=== PATIENT | female | born 1955 | race Caucasian/White ===

== ENCOUNTER → 2024-01-11 | Outpatient (CLI) | payer MEDICARE, OTHER, SELFPAY ==
[2024-01-11 11:08] LABS: EXAGEN MAILED SPECIMEN
[2024-01-11 12:19] LABS: Color, Urine Yellow (Yellow); Glucose, Dipstick Normal (Normal); Ketone-Dipstick Negative (Negative); Leukocyte Esterase-Dipstick 100 /ul (Negative); Nitrite-Dipstick Negative (Negative); Occult Blood-Urine Negative /ul (Negative); Protein-Dipstick Negative (Negative); Specific Gravity, Urine 1.015 (1.002-1.030); Urine Bilirubin Dipstick Negative (Negative); Urine Clarity Clear (Clear); Urine Urobilinogen Normal (Normal)
[2024-01-11 12:34] LABS: Protein:Creat Ratio 116 mg/g CRE (0-200)
[2024-01-11 13:23] LABS: Hepatitis B Surface Antibody Non-Reactive; Hepatitis B Surface Antigen Non-Reactive (Nonreactive); Hepatitis C Antibody Non-Reactive (Nonreactive); Vitamin D,25 Hydroxy 40.8 ng/mL
[2024-01-11 13:28] LABS: ALB/GLOB Ratio 1.1 RATIO (0.9-2.4); AST(SGOT) 23 U/L (15-37); Alanine Aminotransfer ALT/SGPT 22 U/L (13-56); Albumin, Serum 3.9 g/dL (3.2-5.0); Alkaline Phosphatase 126 U/L (45-117); Anion Gap 5 (5-15); BUN 10 mg/dL (7-18); BUN/Creat Ratio 12.5 RATIO (10-20); CRP 5.78 mg/L (0.0-3.0); Calcium,Total 9.3 mg/dL (8.5-10.1); Chloride 107 mmol/L (98-107); EST Glomerular Filtration Rate 75 mL/min (>60); Est Glom Filt Rate - Afr Amer 91 mL/min (>60); Globulin 3.7 g/dL (2.2-4.2); Glucose 107 mg/dL (74-106); Potassium 4.7 mmol/L (3.5-5.1); Protein, Total 7.6 g/dL (6.4-8.2); Sodium Level 139 mmol/L (136-145)
== END | disposition home or self-care (01) ==
PROVIDERS: PCP Nurse Practitioner Family; Referring Provider Internal Medicine Rheumatology; Visit Provider Internal Medicine Rheumatology
DX: M06.4 Inflammatory polyarthropathy (principal); R76.8 Other specified abnormal immunological findings in serum
CPT/HCPCS: 36415; 80053; 81002; 82306; 82570; 84156; 86140; 86706; 86803; 87340

== ENCOUNTER → 2024-01-15 | Outpatient (CLI) | payer MEDICARE, OTHER, SELFPAY ==
--- OUTSIDE RECORDS SUMMARY | 2024-01-15 11:56 | XMS RPT_ITS | CCD ---
Author Organization [facility] Inform ion Partnership [facility] Care Team Providers Care Highway Patrol Officer Name Role Phone [place] Primary Care Physicia n REGINA SOFT HAT BINDER-GLASS WASHER, ELAN Primary Care Physician REGINA SOFT HAT BINDER-GLASS WASHER, ELAN Attending Unavail able LORSON SOFT HAT BINDER-GLASS WASHER, ELAN Primary Care Unavail able JARED SOFT HAT BINDER-GLASS WASHERCHRISTIANA Attending Unavailab le LORSON SOFT HAT BINDER-GLASS WASHER, ELAN Primary Care Unavail able LORSON SOFT HAT BINDER-GLASS WASHER, ELAN Primary Care Unavail able LORSON SOFT HAT BINDER-GLASS WASHER, ELAN Attending Unavail able Medications Current Medications Medication Drug Class(es) Dates Sig (Normalized) Sig (Original) Ibuprofen (5 sources) Nonsteroidal Anti-inflammatory Drug Start: 07-08-2021 ibuprofen PRN as needed for pain, 0 Refill(s) Start Date: 07/08/21 Status: Ordered nutritional supplement (2 sources) Start: 07-01-2023 nutritional supplement Cardio Miracle, 0 Refill(s) Start Date: 07/01/23 Status: Ordered sulfamethoxazole 800 mg / trimethoprim 160 mg oral tablet (1 source) Dihydrofolate Reductase Inhibitor Antibacterial, Sulfonamide Antimicrobial Start: 10-05-2023 End: 10-12-2023 take 1 tablet by mouth twice daily Bactrim DS 800 mg-160 mg oral tablet Dose = 1 tab(s), Oral, BID, X 7 day(s), # 14 tab(s), 0 Refill(s), Pharmacy: [facility], 172, cm, 10/05/23 16:27:00 EDT, Height, 102.2, kg, 10/05/23 16:27:00 EDT, Dosing Weight Start Date: 10/05/23 Stop Date: 10/12/23 Status: Ordered Problems Problem Classification Problem Date Documented Date Episodic/Chronic Conditions associated with dizziness or vertigo (5 sources) Benign paroxysmal positional vertigo 07-08-2021 Episodic Genitourinary symptoms and ill-defined conditions (4 sources) Urgency of urination; Translations: [Frequency of micturition] Onset: 10-05-2023 Episodic Headache; including migraine (5 sources) Frequent headache 07-08-2021 Episodic Immunizations and screening for infectious disease (3 sources) Raised antinuclear antibody; Translations: [Abnormal finding on evaluation procedure] 07-28-2023 Episodic Other ear and sense organ disorders (5 sources) Tinnitus 07-08-2021 Episodic Other infections; including parasitic (3 sources) Lyme disease; Translations: [Lyme disease, unspecified] 07-28-2023 Episodic Other skin disorders (2 sources) Eruption 07-01-2023 Episodic Other skin disorders (1 source) Non-scarring alopecia; Translations: [Nonscarring hair loss, unspecified] Episodic Other skin disorders (1 source) Loss of hair 11-16-2023 Episodic Residual codes; unclassified (5 sources) Postmenopausal state 07-08-2021 Episodic Unclassified (20 sources) Patient encounter status 07-08-2021 Results Test Name Value Interpretation Reference Range Facility .CCLANAIFSon 11-17-2023 Antinuclear Ab Pattern Nuclear fine speckled Normal [facility] ([place] Comment on above: Result Comment: Perf ormed By: [facility] [address] [place] [address] Nurse Emergency: Arnaud Yap III, M.D. CLIA#: [id number] Performed By: #### 1 15531, GFR, LIPID, CMP #### [facility] [address] [place], [place] [address] #### RF, MIMI, PINKY, 098956 #### [address] [address] Antinuclear Ab Screen Positive Abnormal Negative [facility] ([place]) Comment on above: Result Comment: Anti -nuclear antibody test is used as an aid in diagnosis of systemic autoimmune diseases. Where positive and clinically warranted, follow-up using disease-specific testing is recommended. Low positive titers are not uncommon with advanced age, certain chronic infections, and malignancies among others. Test methodology: Indirect fluorescence immunoassay (IFA) using HEp-2 cells. Performed By: [id number] [place] [address] Nurse Emergency: Arnaud Yap III, M.D. CLIA#: [id number] Performed By: #### 1 07576, GFR, LIPID, CMP #### [place] [address] #### RF, MIMI, PINKY, 913952 #### [place] [address] Antinuclear Ab Titer 1:80 Normal [facility] ([place]) Comment on above: Result Comment: Perf ormed By: [place] [address] Nurse Emergency: Arnaud aYp III, M.D. CLIA#: [id number] Performed By: #### 1 92995, GFR, LIPID, CMP #### [place] [address] #### RF, MIMI, PINKY, 753181 #### [place] [address] .Lyme IgG/IgM [id number] 11-16 Lyme IgG NORMA Positive Normal Negative [facility] ([place]) Comment on above: Performed By: #### 1 45229, GFR, LIPID, CMP #### [place] [address] #### RF, MIMI, PINKY, 099268 #### [place] [id number] Lyme IgM NORMA Positive Normal Negative [facility] ([place]) Comment on above: Performed By: #### 1 18309, GFR, LIPID, CMP #### [place] [address] #### RF, MIMI, PINKY, 812592 #### [place] [id number] Lyme Interpretation NORMA Comment Abnormal [facility] ([place] Comment on above: Result Comment: Lyme IgM/IgG Abs Detected Results are consistent with B. burgdorferi infection (Lyme disease) in the recent or remote past. IgG-class antibodies may remain detectable for months to years following resolution of infection. Results should not be used to monitor or establish adequate response to therapy. Response to therapy is confirmed through resolution of clinical symptoms; additional laboratory testing should not be performed. If both tests are equivocal consider repeat testing in 7 to 14 days if clinically warranted. Performed At: [address] [id number] Harinder Shirley PhD Ph:[phone] Performed By: #### 1 23219, GFR, LIPID, CMP #### [place] [address] #### RF, MIMI, PINKY, 963991 #### [place] [id number] LMERLYon 11-17-2023 Lyme Total Antibody NORMA Positive Normal Negative [facility] ([place] Comment on above: Result Comment: Evid ence of Lyme antibodies; confirmation indicated. See Lyme IgG and Lyme IgM results (reflex testing), and Lyme interpretation for final interpretation of the Lyme serology reflex algorithm. Performed At: [address] [id number] Harinder Shirley PhD Ph:[phone] Performed By: #### 1 17698, GFR, LIPID, CMP #### [place] [address] #### RF, MIMI, PINKY, 126829 #### [address] [address] .Auto Diffon 11-16-2023 Basophil, Absolute 0.0 10 3/mcL Normal 0.0-0.2 [facility] ([place]) Comment on above: Performed By: #### 1 01908, GFR, LIPID, CMP #### [place] [address] #### RF, MIMI, PINKY, 720486 #### [address] [address] Basophils/100 WBC (Bld) 0.5 % Normal 0.0-2.5 [facility] ([place]) Comment on above: Performed By: #### 1 54846, GFR, LIPID, CMP #### [place] [address] #### RF, MIMI, PINKY, [id number] #### [address] [address] Eosinophil, Absolute 0.1 10 3/mcL Normal 0.0-0.4 [facility] ([place]) Comment on above: Performed By: #### 1 67397, GFR, LIPID, CMP #### [place] [address] #### RF, MIMI, PINKY, [id number] #### [address] [address] Eosinophils/100 WBC (Bld) 1.7 % Normal 0.0-7.0 [facility] ([place]) Comment on above: Performed By: #### 1 79511, GFR, LIPID, CMP #### [place] [address] #### RF, MIMI, PINKY, [id number] #### [address] [address] Lymphocyte, Absolute 2.1 10 3/mcL Normal 0.8-3.9 [facility] ([place] Comment on above: Performed By: #### 1 95495, GFR, LIPID, CMP #### [place] [address] #### RF, MIMI, PINKY, [id number] #### [address] [address] Lymphocytes/100 WBC (Bld) 29.7 % Normal 10.0-50.0 [facility] ([place] Comment on above: Performed By: #### 1 21758, GFR, LIPID, CMP #### [place] [address] #### RF, MIMI, PINKY, [id number] #### [address] [address] Monocyte, Absolute 0.5 10 3/mcL Normal 0.2-1.0 [facility] ([place]) Comment on above: Performed By: #### 1 78701, GFR, LIPID, CMP #### [place] [address] #### RF, MIMI, PINKY, 819906 #### [address] [address] Monocytes/100 WBC (Bld) 6.7 % Normal 1.7-13.0 [facility] ([place] Comment on above: Performed By: #### 1 10050, GFR, LIPID, CMP #### [address] [address] #### RF, MIMI, PINKY, 646649 #### [address] [address] Neutrophils/100 WBC (Bld) 61.4 % Normal 37.0-80.0 [facility] ([place] Comment on above: Performed By: #### 1 63841, GFR, LIPID, CMP #### [place] [address] #### RF, MIMI, PINKY, 060489 #### [address] [address] .NEUABSon 11-16-2023 Neutrophil, Absolute 4.3 10 3/mcL Normal 2.9-6.2 [facility] ([place] Comment on above: Performed By: #### 1 83165, GFR, LIPID, CMP #### [place] [address] #### RF, MIMI, PINKY, 404011 #### [address] [address] CBCon 11-16-2023 Erythrocyte distribution width (RBC) [Ratio] 13.2 % Normal 11.5-14.5 [facility] ([place] Comment on above: Performed By: #### 1 35767, CBC, FERR, FE, TSHR, 209674, ADIFF, ANEU #### [address] [address] Hematocrit (Bld) [Volume fraction] 44.4 % Normal 37.0-47.0 [facility] ([place] Comment on above: Performed By: #### 1 87929, CBC, FERR, FE, TSHR, 092585, ADIFF, ANEU #### [address] [address] Hgb 14.9 G/dL Normal 12.0-16.0 [facility] ([place] Comment on above: Performed By: #### 1 72836, CBC, FERR, FE, TSHR, 710618, ADIFF, ANEU #### [address] [address] MCH (RBC) [Entitic mass] 29.8 pg Normal 27.0-31.2 [facility] ([place] Comment on above: Performed By: #### 1 82546, CBC, FERR, FE, TSHR, 800472, ADIFF, ANEU #### [address] [address] MCHC 33.7 G/dL Normal 33.0-37.0 [facility] ([place] Comment on above: Performed By: #### 1 61447, CBC, FERR, FE, TSHR, 695744, ADIFF, ANEU #### [address] [address] MCV (RBC) [Entitic vol] 88.5 fL Normal 80.0-94.0 [facility] ([place] Comment on above: Performed By: #### 1 10741, CBC, FERR, FE, TSHR, 983225, ADIFF, ANEU #### [address] [address] Platelet 236 10 3/mcL Normal 130-400 [facility] ([place]) Comment on above: Performed By: #### 1 48550, CBC, FERR, FE, TSHR, 951424, ADIFF, ANEU #### [address] [address] Platelet mean volume (Bld) [Entitic vol] 10.1 fL Normal 7.4-10.4 [facility] ([place] Comment on above: Performed By: #### 1 17971, CBC, FERR, FE, TSHR, 896424, ADIFF, ANEU #### [address] [address] RBC 5.02 10 6/mcL Normal 4.20-5.40 [facility] ([place] Comment on above: Performed By: #### 1 51853, CBC, FERR, FE, TSHR, 839238, ADIFF, ANEU #### [address] [address] WBC 7.0 10 3/mcL Normal 4.6-10.8 [facility] ([place] Comment on above: Performed By: #### 1 23845, CBC, FERR, FE, TSHR, 708779, ADIFF, ANEU #### [place] [id number] FEon 11-16-2023 Iron [Mass/Vol] 97 ug/dL Normal 50-170 [facility] ([place] Comment on above: Performed By: #### 1 72451, GFR, LIPID, CMP #### [place] [address] #### RF, MIMI, PINKY, 400334 #### [place] [address] Carli 11-16-2023 Ferritin [Mass/Vol] 169.0 ng/mL Normal 8.0-252.0 [facility] ([place]) Comment on above: Performed By: #### 1 34926, GFR, LIPID, CMP #### [place] [address] #### RF, MIMI, PINKY, 814574 #### [place] [address] LABORATORYOrdered By: SYSTEM SYSTEM on 11-16-2023 Basophil, Absolute 0.0 103/mcL Normal 0.0 - 0.2 10^3/mcL AO Workflow SS Basophils/100 WBC (Bld) 0.5 % Normal 0.0 - 2.5 % AO Workflow SS Eosinophil, Absolute 0.1 103/mcL Normal 0.0 - 0 .4 10^3/mcL AO Workflow SS Eosinophils/100 WBC (Bld) 1.7 % Normal 0.0 - 7.0 % AO Workflow SS Erythrocyte distribution width (RBC) [Ratio] 13.2 % Normal 11.5 - 14.5 % AO Workflow SS Ferritin [Mass/Vol] 169.0 ng/mL Normal 8.0 - 25 2.0 ng/mL AO ADM SS Hematocrit (Bld) [Volume fraction] 44.4 % Normal 37.0 - 47.0 % AO Workflow SS Hemoglobin (Bld) [Mass/Vol] 14.9 G/dL Normal 12.0 - 16.0 G/dL AO Workflow SS Iron [Mass/Vol] 97 ug/dL Normal 50 - 170 mcg/dL AO ADM SS Lymphocyte, Absolute 2.1 103/mcL Normal 0.8 - 3 .9 10^3/mcL AO Workflow SS Lymphocytes/100 WBC (Bld) 29.7 % Normal 10.0 - 50.0 % AO Workflow SS MCH (RBC) [Entitic mass] 29.8 pg Normal 27.0 - 31.2 pg AO Workflow SS MCHC 33.7 G/dL Normal 33.0 - 37.0 G/dL AO Workflow SS MCV (RBC) [Entitic vol] 88.5 fL Normal 80.0 - 94.0 fL AO Workflow SS Monocyte, Absolute 0.5 103/mcL Normal 0.2 - 1.0 10^3/mcL AO Workflow SS Monocytes/100 WBC (Bld) 6.7 % Normal 1.7 - 13.0 % AO Workflow SS Neutrophil, Absolute 4.3 103/mcL Normal 2.9 - 6 .2 10^3/mcL AO Workflow SS Neutrophils/100 WBC (Bld) 61.4 % Normal 37.0 - 80.0 % AO Workflow SS Platelet mean volume (Bld) [Entitic vol] 10.1 fL Normal 7.4 - 10.4 fL AO Workflow SS Platelets (Bld) [#/Vol] 236 103/mcL Normal 130 - 400 10^3/mcL AO Workflow SS RBC (Bld) [#/Vol] 5.02 106/mcL Normal 4.20 - 5.4 0 10^6/mcL AO Workflow SS TSH Qn 2.73 m[IU]/L Normal 0.36 - 3.74 mcIU/mL AO ADM SS WBC (Bld) [#/Vol] 7.0 103/mcL Normal 4.6 - 10.8 10^3/mcL AO Workflow SS TSHRon 11-16-2023 TSH Qn 2.73 m[IU]/L Normal 0.36-3.74 [facility] ([place] Comment on above: Performed By: #### 1 63764, GFR, LIPID, CMP #### [address] [address] #### RF, MIMI, PINKY, 642916 #### [address] [address] CEFEPIME:SUSC:PT:ISOLATE:ORD QN:MICon 10-05-2023 Cefepime JAMES [Susc] 50,000 - 100,000 cfu/ml Citrobacter koseri [facility] Cefepime JAMES [Susc]on 2023 Citrobacter koseri Citrobacter koseri [facility] RFon 07-16-2023 Rheumatoid Factor <6.0 Normal <=5.9 [facility] ([place] Comment on above: Result Comment: RF I gM Antibody by Enzyme Immunoassay: Negative < or = 6 Positive > 6 A positive result indicates the presence of RF antibodies and suggests the possibility of rheumatoid arthritis. A negative result indicates no RF IgM antibody or levels below the negative cut-off of the assay. Results of this assay should be used in conjunction with clinical findings and other serological tests. These results were obtained with the I.Predictus QUANTA Lite RF IgM CARLOS. RF IgM values obtained with different manufacturers' assay methods may not be used interchangeably. The magnitude of the reported IgM levels cannot be correlated to an endpoint titer. Performed By: #### 1 18071, GFR, LIPID, CMP #### [address] [address] #### RF, MIMI, PINKY, 906915 #### [address] [address] .ANATon 07-15-2023 PINKY Pattern 1 Speckled Normal [facility] ([place] Comment on above: Result Comment: At A ultman, an PINKY titer of less than 160 is not considered suggestive of significant rheumatoid disease. If clinical suspicion is high, suggest repeat testing in 1-2 months. Performed By: #### 1 55437, GFR, LIPID, CMP #### [address] [address] #### RF, MIMI, PINKY, 759678 #### [place] [address] PINKY Titer 1 40 Normal [facility] ([place] Comment on above: Performed By: #### 1 89702, GFR, LIPID, CMP #### [address] [address] #### RF, MIMI, PINKY, 901036 #### [place] [id number] .Lyme IgG/IgM 413486td 07-14 Lyme IgG NORMA Positive Normal Negative [facility] ([place] Comment on above: Performed By: #### 1 61724, GFR, LIPID, CMP #### [place] [address] #### RF, MIMI, PINKY, 152544 #### [place] [address] Lyme IgM NORMA Positive Normal Negative [facility]) Comment on above: Performed By: #### 1 66704, GFR, LIPID, CMP #### [place] [address] #### RF, MIMI, PINKY, 539673 #### [place] [id number] Lyme Interpretation NORMA Comment Abnormal [facility] ([place] Comment on above: Result Comment: Lyme IgM/IgG Abs Detected Results are consistent with B. burgdorferi infection (Lyme disease) in the recent or remote past. IgG-class antibodies may remain detectable for months to years following resolution of infection. Results should not be used to monitor or establish adequate response to therapy. Response to therapy is confirmed through resolution of clinical symptoms; additional laboratory testing should not be performed. If both tests are equivocal consider repeat testing in 7 to 14 days if clinically warranted. Performed At: [facility] [id number] Harinder Shirley PhD Ph:[phone] Performed By: #### 1 75391, GFR, LIPID, CMP #### [place] [address] #### RF, MIMI, PINKY, 811220 #### [place] [address] ANAon 07-15-2023 PINKY See Titer Normal Neg 40 [facility] ([place]) Comment on above: Result Comment: PINKY Screen and Titer methodology is an immunofluorescent technique utilizing Hep2 Substrate. Performed By: #### 1 93966, GFR, LIPID, CMP #### [place] [address] #### RF, MIMI, PINKY, 989196 #### [place] [address] LMERLYon 07-15-2023 Lyme Total Antibody NORMA Positive Normal Negative [facility] ([place] Comment on above: Result Comment: Evid ence of Lyme antibodies; confirmation indicated. See Lyme IgG and Lyme IgM results (reflex testing), and Lyme interpretation for final interpretation of the Lyme serology reflex algorithm. Performed At: [facility] [id number] Harinder Shirley PhD Ph:[phone] Performed By: #### 1 25181, GFR, LIPID, CMP #### [place] [address] #### RF, MIMI, PINKY, 992862 #### [place] [address] .GFRon 07-14-2023 GFR 83 ml/min/1.73sqm Normal [facility] ([place] Comment on above: Result Comment: GFR Population mean for , Non- Americans Ages 20-29 = 116 mL/min/1.73 sq.m. Ages 30-39 = 107 mL/min/1.73 sq.m. Ages 40-49 = 99 mL/min/1.73 sq.m. Ages 50-59 = 93 mL/min/1.73 sq.m. Ages 60-69 = 85 mL/min/1.73 sq.m. Ages 70+ = 75 mL/min/1.73 sq.m. Chronic Kidney Disease: Less than 60 mL/min/1.73 square meters End Stage Renal Disease: Less than 15 mL/min/1.73 square meters Performed By: #### 1 42829, GFR, LIPID, CMP #### [place] [address] #### RF, MIMI, PINKY, 793001 #### [address] [address] GFR Non- 68 ml/min/1.73sqm Normal [facility] ([place] Comment on above: Result Comment: GFR Population mean for , Non- Americans Ages 20-29 = 116 mL/min/1.73 sq.m. Ages 30-39 = 107 mL/min/1.73 sq.m. Ages 40-49 = 99 mL/min/1.73 sq.m. Ages 50-59 = 93 mL/min/1.73 sq.m. Ages 60-69 = 85 mL/min/1.73 sq.m. Ages 70+ = 75 mL/min/1.73 sq.m. Chronic Kidney Disease: Less than 60 mL/min/1.73 square meters End Stage Renal Disease: Less than 15 mL/min/1.73 square meters Performed By: #### 1 24143, GFR, LIPID, CMP #### [place] [address] #### RF, MIMI, PINKY, 601968 #### [address] [address] CMPon 07-14-2023 Albumin Level 4.1 G/dL Normal 3.4-4.8 [facility] ([place] Comment on above: Performed By: #### 1 86689, GFR, LIPID, CMP #### [address] [address] #### RF, MIMI, PINKY, 130313 #### [address] [address] Albumin/Globulin [Mass ratio] 1.3 {ratio} Normal 1.1-2.5 [facility] ([place]) Comment on above: Performed By: #### 1 07900, GFR, LIPID, CMP #### [address] [address] #### RF, MIMI, PINKY, 740433 #### [address] [address] ALP [Catalytic activity/Vol] 124 U/L Normal 40-135 [facility] ([place] Comment on above: Performed By: #### 1 54528, GFR, LIPID, CMP #### [place] [address] #### RF, MIMI, PINKY, 824473 #### [address] [address] ALT [Catalytic activity/Vol] 27 U/L Normal 14-59 [facility] ([place]) Comment on above: Performed By: #### 1 31741, GFR, LIPID, CMP #### [place] [address] #### RF, MIMI, PINKY, [id number] #### [address] [address] AST [Catalytic activity/Vol] 18 U/L Normal 10-40 [facility] ([place] Comment on above: Performed By: #### 1 09175, GFR, LIPID, CMP #### [place] [address] #### RF, MIMI, PINKY, 922441 #### [address] [address] Bili Total 0.5 mg/dL Normal 0.2-1.0 [facility] ([place] Comment on above: Result Comment: Use of this assay is not recommended for patients undergoing treatment with eltrombopag due to the potential for falsely elevated results. Performed By: #### 1 52872, GFR, LIPID, CMP #### [place] [address] #### RF, MIMI, PINKY, 087562 #### [address] [address] BUN/Creatinine Ratio 18 ratio Normal 7-27 [facility] ([place]) Comment on above: Performed By: #### 1 33274, GFR, LIPID, CMP #### [place] [address] #### RF, MIMI, PINKY, 599343 #### [address] [address] Calcium [Mass/Vol] 9.4 mg/dL Normal 8.4-10.2 [facility] ([place]) Comment on above: Performed By: #### 1 93716, GFR, LIPID, CMP #### [place] [address] #### RF, MIMI, PINKY, [id number] #### [address] [address] Chloride [Moles/Vol] 103 mmol/L Normal 98-107 [facility] ([place]) Comment on above: Performed By: #### 1 73435, GFR, LIPID, CMP #### [place] [address] #### RF, MIMI, PINKY, [id number] #### [address] [address] CO2 [Moles/Vol] 29 mmol/L Normal 23-31 [facility] ([place] Comment on above: Performed By: #### 1 06969, GFR, LIPID, CMP #### [place] [address] #### RF, MIMI, PINKY, [id number] #### [address] [address] Creatinine [Mass/Vol] 0.83 mg/dL Normal 0.55-1.02 [facility] ([place]) Comment on above: Performed By: #### 1 77725, GFR, LIPID, CMP #### [place] [address] #### RF, MIMI, PINKY, [id number] #### [address] [address] Electrolyte Balance 8.0 mEq/L Normal 4.0-15.0 [facility] ([place]) Comment on above: Performed By: #### 1 95619, GFR, LIPID, CMP #### [place] [address] #### RF, MIMI, PINKY, [id number] #### [address] [address] Globulin 3.1 G/dL Normal [facility] ([place] Comment on above: Performed By: #### 1 44979, GFR, LIPID, CMP #### [address] [address] #### RF, MIMI, PINKY, 719466 #### [address] [address] Glucose [Mass/Vol] 104 mg/dL Normal 80-115 [facility] ([place]) Comment on above: Performed By: #### 1 06962, GFR, LIPID, CMP #### [address] [address] #### RF, MIMI, PINKY, [id number] #### [address] [address] Potassium [Moles/Vol] 4.8 mmol/L Normal 3.5-5.1 [facility] ([place] Comment on above: Performed By: #### 1 06418, GFR, LIPID, CMP #### [address] [address] #### RF, MIMI, PINKY, [id number] #### [address] [address] Sodium [Moles/Vol] 140 mmol/L Normal 136-145 [facility] ([place] Comment on above: Performed By: #### 1 45292, GFR, LIPID, CMP #### [address] [address] #### RF, MIMI, PINKY, [id number] #### [address] [address] Total Protein 7.2 G/dL Normal 6.4-8.2 [facility] ([place] Comment on above: Performed By: #### 1 28172, GFR, LIPID, CMP #### [address] [address] #### RF, MIMI, PINKY, 076035 #### [address] [address] Urea nitrogen [Mass/Vol] 15 mg/dL Normal 7-18 [facility] ([place] Comment on above: Performed By: #### 1 84504, GFR, LIPID, CMP #### [address] [address] #### RF, MIMI, PINKY, 134128 #### [address] [address] LIPIDon 07-14-2023 Cholesterol [Mass/Vol] 203 mg/dL High 0-200 [facility] ([place] Comment on above: Result Comment: Chol esterol Reference Interval: Less than 200 Desirable 200-239 Borderline high risk 240 and above High risk Performed By: #### 1 24234, GFR, LIPID, CMP #### [address] [address] #### RF, MIMI, PINKY, [id number] #### [address] [address] Cholesterol in HDL [Mass/Vol] 53 mg/dL Normal 40-60 [facility] ([place] Comment on above: Performed By: #### 1 90475, GFR, LIPID, CMP #### [place] [address] #### RF, MIMI, PINKY, [id number] #### [address] [address] Cholesterol in LDL [Mass/Vol] 119 mg/dL Normal 0-130 [facility] ([place] Comment on above: Performed By: #### 1 43623, GFR, LIPID, CMP #### [address] [address] #### RF, MIMI, PINKY, 505912 #### [address] [address] Triglyceride [Mass/Vol] 155 mg/dL High 0-150 [facility] ([place] Comment on above: Result Comment: Trig lyceride Reference Interval: Less than 150 Normal 150-199 Borderline high risk 200-499 High risk 500 or higher Very high risk Performed By: #### 1 69732, GFR, LIPID, CMP #### [place] [address] #### RF, MIMI, PINKY, [id number] #### [address] [address] LABORATORYOrdered By: Maria Esther Armstrong on 07-18-2021 Creatinine [Mass/Vol] 0.80 mg/dL Invalid Interpretation Code 0.55 - 1.02 mg/dL AO ADM SS LABORATORYOrdered By: SYSTEM SYSTEM on 07-18-2021 GFR 87 ml/min/1.73sqm Invalid Interpretation Code AO Chemistry S GFR Non- 72 ml/min/1.73sqm Invalid Interpretation Code AO Chemistry S Encounters Encounter Date Encounter Type Care Provider Facility Start: 11-16-2023 End: 11-16-2023 ambulatory ELAN RIVERANIDA [employer] W[employer]ER Facility:B Start: 11-16-2023 End: 11-16-2023 Patient encounter procedure ELAN RIVERANIDA [employer] [facility] Start: 10-05-2023 End: 10-09-2023 ambulatory CHRISTIANA JARED [employer]ER Facility:B Start: 10-05-2023 End: 10-09-2023 Outreach Lab AZULEDA JARED [employer] W[employer]ER [facility] Start: 07-14-2023 End: 07-14-2023 ambulatory ELAN TAPIA SO[employer] W[employer]ER Facility:B Start: 07-18-2021 End: 07-18-2021 Patient encounter procedure ELAN TAPIA SOFT HAT BINDER-GLASS WASHER [facility] Procedures Date Procedure Procedure Detail Performing Clinician Start: 03-23-2016 Colonoscopy ELAN PASTOR RSON SOFT HAT BINDER-GLASS WASHER Start: 03-23-2007 Hysterectomy ELAN LO RSON SOFT HAT BINDER-GLASS WASHER Start: 03-23-1985 section [place] TAPIA SOFT HAT BINDER-GLASS WASHER Immunizations Immunization Date Immunization Notes Care Provider Harvey weiner 09-11-2016 zoster vaccine, live ELAN RIVERANIDA SOFT HAT BINDER-GLASS WASHER [facility] 09-09-2016 pneumococcal polysaccharide vaccine, 23 valent ELAN TAPIA SOFT HAT BINDER-GLASS WASHER [facility] 09-09-2016 tetanus toxoid, redu toro diphtheria toxoid, and acellular pertussis vaccine, adsorbed ELAN TAPIA SOFT HAT BINDER-GLASS WASHER [facility] Payers Date Payer Category Payer Medicare [id number] 2023 Unknown [id number] 1955 Unknown [id number] 1955 Unknown [id number] 1955 Unknown [id number] Social History Date Type Detail Facility Start: 07-08-2021 Tobacco smoking status Ex-smoker (fi nding) [facility] Sex Assigned At Sex [facility] Evaluation + Plan note 11-16-2023 Laboratory Note Date & Type Note Facility 11-16-2023 Evaluation + Plan note Diagnostic Tests PendingLyme Disease Serology w/Reflex 11/16/23.CCLANA by IFA Screen 11/16/23 Future Scheduled TestsAntinuclear Antibody Screen, Serum 11/16/23Antinuclear Antibody Screen, Serum 07/28/23 [facility] Clinical Note 10-08-2023 Note Date & Type Note Facility 10-08-2023 Note . MICRO - Microbiology PROCEDURE: Urine Culture [*1] SOURCE: Urine, Clean Catch BODY SITE: COLLECTED DATE/TIME: 10/05/2023 16:33 EDT RECEIVED DATE/TIME: 10/06/2023 14:08 EDT START DATE/TIME: 10/06/2023 14:08 EDT FREE TEXT SOURCE: FINAL REPORTS Final Report [] Verified Date/Time/Personnel: 10/08/2023 08:32 EDT 50,000 - 100,000 cfu/ml Citrobacter koseri PRELIMINARY REPORTS Preliminary Report [] Verified Date/Time/Personnel: 10/07/2023 12:59 EDT 50,000 - 100,000 cfu/ml Citrobacter koseri JAMES to follow SUSCEPTIBILITY RESULTS Citrobacter koseri Antibiotic JAMES Dilut JAMES Inter Ampicillin >16 Resistant Ampicillin/ <=4/2 Susceptible Sulbactam Aztreonam <=4 Susceptible Cefazolin <=2 Susceptible Ciprofloxacin <=0.25 Susceptible Ertapenem <=0.5 Susceptible Gentamicin <=2 Susceptible ID Panel Not Not Applicable Applicable Imipenem <=1 Susceptible Levofloxacin <=0.5 Susceptible Meropenem <=1 Susceptible Minocycline <=4 Susceptible Nitrofurantoin <=32 Susceptible Piperacillin/ <=8 Susceptible Tazobactam Trimethoprim/ <=0.5/9.5 Susceptible Sulfa Performing Locations *1: This test was performed at: [facility], [address] [place] [address], [facility] , [facility] ([place]) Evaluation + Plan note 07-28-2023 Laboratory Note Date & Type Note Facility 07-28-2023 Evaluation + Plan note Future Scheduled TestsAntinuclear Antibody Screen, Serum 07/28/23 [facility] Evaluation + Plan note 07-08-2021 Laboratory Note Date & Type Note Facility 07-08-2021 Evaluation + Plan note Future Scheduled TestsLipid Profile 07/08/21Complete Metabolic Panel 07/08/21 [facility] Hospital course Narrative Note Date & Type Note Facility Hospital course Narrative No data available for this section [facility] Hospital Discharge instructions Note Date & Type Note Facility Hospital Discharge instructions No data available for this section [facility] Progress note Note Date & Type Note Facility Progress note No data available for this section [facility] Summary Purpose Family History No Family History Records Found Advance Directives No Advanced Directives Records Found Additional Source Comments Care Team (unrecognized sect ion and content) Personnel Name: RIVER CONTRERAS Jordan ERICKSONN-GLASS WASHER [facility] [address] [facility] [address] [facility] Eduardo Gaming MD [place] [phone]- Personnel Name: CARMEN CONTRERASAMAURY Ortega SOFT HAT BINDER-GLASS WASHER [facility] [address] [facility] [address] [facility] MD Anne Marie Mall[place] [phone]- Care Team Personnel Name: ELAN TAPIA APRN-GLASS WASHER Position: P4 Advanced Tester Operator Helper Member Role: Primary Care Physician Address: Address: [address] [place] [phone] [place] Care Team Related Persons Name: SARITA GREY Address: Home [address] [place] [phone] Care Team Personnel Name: ELAN TAPIA APRN-GLASS WASHER Position: P4 Advanced Tester Operator Helper Member Role: Primary Care Physician Address: Address: [address] [place] [phone] [place] [address] Care Team Related Persons Name: SARITA GREY Address: [address] [phone] INFORMATION SOURCE (unrecogn ized section and content) DATE CREATED AUTHOR 11/17/2023 [facility] FOR RECORDS PERTAINING TO PATIENTS WHO ARE OR HAVE BEEN ENROLLED IN A CHEMICAL DEPENDENCY/SUBSTANCEABUSE PROGRAM, SOME INFORMATION MAY BE OMITTED. This clinical summary was aggregated from multiple sources. Caution should be exercised in using it in the provision of clinical care. This summary normalizes information from multiple sources, and as a consequence, information in this document may materially change the coding, format and clinical context of patient data. In addition, data may be omitted in some cases. CLINICAL DECISIONS SHOULD BE BASED ON THE PRIMARY CLINICAL RECORDS. [facility] [employer] [facility] provides no warranty or guarantee of the accuracy or completeness of information in this document.
[2024-01-15 15:05] LABS: Absolute Lymphocyte Count 1.76 X10^3/uL (0.83-4.51); Absolute Neutrophil Count 3.6 X10^3/uL (2.0-7.7); Basophil# 0.05 X10^3/uL; Basophil% 0.8 % (0-1); Eosinophil# 0.11 X10^3/uL; Eosinophils% 1.9 % (0-5); Hematocrit 45.6 % (37-47); Hemoglobin 14.6 g/dL (12.0-15.0); Lymphocyte # 1.76 X10^3/ul (0.83-4.51); Lymphocyte % 29.6 % (19-41); Mean Corpuscular Hgb 28.5 pg (27.0-32.0); Mean Corpuscular Volume 88.9 fL (81-99); Mean Platelet Vol. 11.2 fl (6.2-12.0); Monocyte# 0.38 X10^3/uL; Monocyte% 6.4 % (0-10); NRBC Flagged by Analyzer 0 % (0-5); Neutrophil % 60.6 % (47-70); Platelet Count 266 K/mm3 (150-450); RBC Distribution Width CV 12.4 % (11.6-14.6); RBC Distribution Width SD 40.3 fl (35.1-43.9); Red Blood Count 5.13 M/mm3 (4.2-5.4); White Blood Count 5.9 K/mm3 (4.4-11.0)
[2024-01-15 15:18] LABS: Erythrocyte Sedimentation Rate 6 mm/hr (0-30)
== END | disposition home or self-care (01) ==
PROVIDERS: PCP Nurse Practitioner Family; Referring Provider Internal Medicine Rheumatology; Visit Provider Internal Medicine Rheumatology
DX: M06.4 Inflammatory polyarthropathy (principal); R76.8 Other specified abnormal immunological findings in serum
CPT/HCPCS: 85025; 85652